=== PATIENT | female | born 1990 | race Hispanic/Latino ===

== ENCOUNTER 2018-07-17 08:40 | Emergency (ER) | payer OTHER, SELFPAY ==
[2018-07-17 08:53] VITALS: BP 129/52; PULSE 89; RESP 16; TEMP 38.2; O2SAT 99; BMI 42.0
[2018-07-17 09:00] VITALS: BP 127/69; PULSE 89; O2SAT 98
[2018-07-17] MEDS: ACETAMINOPHEN 325 MG TABLET 650 MG PO (09:29)
--- NOTE | 2018-07-17 09:29 | ED_ITS ---
HPI - Fever General Chief Complaint: Fever Stated Complaint: HEADACHE,8 WKS AND FEVER Time Seen by Provider: 07/17/18 08:55 Source: patient Mode of arrival: ambulatory Limitations: no limitations History of Present Illness HPI Narrative: Patient is a approximately 8 weeks EGA here for evaluation of a headache and fever. She states that the headache started yesterday and the fever started last evening. She states she took Tylenol last evening which did not improve her fever. She is not complaining of any abdominal pain, urinary symptoms, loss of bowel loss of bladder, neck pain Related Data Allergies Allergy/AdvReac Type Severity Reaction Status Date / Time No Known Drug Allergies Allergy Verified 07/17/18 08:53 Review of Systems Constitutional Reports fever(s) and Reports headache(s) Eyes Denies blurry vision, Denies diplopia and Denies photophobia Comments: Pain behind her eyes ENT Ears, Nose, Mouth, and Throat: Denies vertigo, Denies dizziness, Reports headache(s), Denies neck pain, Denies disequilibrium, Reports sinus pain, Reports sinus pressure, Denies sore throat and Denies throat swelling Cardiovascular Denies chest pain, Denies syncope and Denies dyspnea Respiratory Denies dyspnea Gastrointestinal Gastrointestinal: Denies abdominal pain and Denies change in bowel habits Musculoskeletal Denies arthralgias and Denies neck pain Integumentary/Breasts Denies rash Neurologic Denies vertigo, Denies dizziness, Denies syncope, Reports headache(s) and Denies disequilibrium Hematologic/Lymphatic Comments: Not on anticoagulation Allergic/Immunologic Denies throat swelling PFSH Medical History Healthy adult (Acute) Surgical History No pertinent past surgical history (Acute) Social History marital status: Exam Initial Vital Signs Initial Vital Signs: Vital Signs Temperature 100.8 F H 07/17/18 08:53 Pulse Rate 89 07/17/18 08:53 Respiratory Rate 16 07/17/18 08:53 Blood Pressure 129/52 L 07/17/18 08:53 Pulse Oximetry 99 07/17/18 08:53 Const General: cooperative, healthy appearing, comfortable, well developed, well groomed and No acute distress Orientation: alert, awake and oriented x3 HENMT Head: normal to inspection and normocephalic Ears: other (TMs bulging bilaterally without erythema) Eyes General: appearance normal, both eyes and all related structures Resp Effort & Inspection: normal respiratory effort Auscultation: clear to auscultation bilaterally Cardio Rate: regular rate Rhythm: regular rhythm GI Inspection: non-distended Skin Lesions: no lesions Rashes: no rashes Neuro General: awake and oriented x3 Cranial Nerves: CN's II-XI intact bilaterally Extrem General: normal to inspection and capillary refill normal Psych Appearance: grossly normal and well kempt Course Orders Ordered: ED Orders 07/17/18 09:10 Influenza A and B by PCR Rapid Stat Urine Culture Stat Urine Microscopic Stat Discontinued Medications Acetaminophen (Tylenol) 650 mg PO NOW ONE Stop: 07/17/18 08:56 Last Admin: 07/17/18 09:29 Dose: 650 mg Vital Signs - 8 hr 07/17/18 08:53 07/17/18 09:00 Temperature 100.8 F H Pulse Rate 89 89 Respiratory Rate 16 Blood Pressure 129/52 L Blood Pressure [Left Arm] 127/69 Pulse Oximetry 99 98 MDM - Fever Lab Data Attestation: I reviewed the patient's lab results. Lab Results 07/17/18 07/17/18 Range/Units 09:10 09:10 Urine RBC 5-10/hpf H (0-5/HPF) Urine WBC 1-5/hpf (0-5/HPF) Ur Squamous Epith Cells 1-5 /hpf Urine Bacteria Moderate (10-30) H (None) Ur Culture Indicated? Specimen cultured Micro UA Comment Not Reportable Influenza A & B (PCR) Negative (Negative) Urine Dip Bedside Urine Glucose Negative Bedside Urine Bilirubin + 1 Bedside Urine Ketone - Negative Urine Specific [place] 1.020 Bedside Urine Occult Blood ++ Bedside Urine pH 7.0 Bedside Urine Protein +/- 15 Bedside Urine Urobilinogen - Negative Bedside Urine Nitrite - Negative Bedside Urine Leukocytes +/- 15 Esterase MDM Narrative Medical decision making narrative: The patient's flu is negative. Was given Tylenol here in the emergency department. Her physical exam is not consistent with meningitis. Patient does have leukocyte Estrace him bacteria in her urine but no white blood cells and no urinary symptoms. A culture was started. Will hold on antibiotics for now. Patient was informed that a culture was pending and we would call for any positive results in any need for antibiotics. She does report sinus congestion. She does have fluid behind bilateral ears but however no signs of otitis media. No indication for antibiotics. We did discuss decongestants such as Claritin/Kathleen/Zyrtec. Patient was given return precautions. She expressed understanding and agreement with plan. Discharge Plan Departure Patient Disposition: Home Clinical Impression: Fever, Sinus congestion Instructions: Medications and , DI for Nasal Congestion Activity Restrictions/Additional Instructions: You can take Tylenol for any headaches and fevers. Also recommend that you take either Claritin or Zyrtec or Kathleen for the sinus congestion. Call your primary care doctor and her OB for follow-up. Return to the emergency department for any new or worsening symptoms
[2018-07-17 09:36] LABS: Influenza A and B by PCR Rapid Negative (Negative); RBC Urine 5-10/HPF (0-5/HPF); WBC Urine 1-5/HPF (0-5/HPF)
[2018-07-17 09:37] LABS: Bacteria Urine Moderate (10-30); Culture Indicated Urine Specimen Cultured; Squamous Epithelial Cell Urine 1-5 /HPF
[2018-07-17 10:00] VITALS: BP 127/62; PULSE 93; O2SAT 96
[2018-07-17 10:41] VITALS: BP 125/67; PULSE 101; RESP 18; TEMP 39.1; O2SAT 100
== END 2018-07-17 10:41 | disposition home or self-care (01) ==
PROVIDERS: Emergency Provider Emergency Medicine
DX: R50.9 Fever, unspecified (principal); R09.81 Nasal congestion
CPT/HCPCS: 81003; 81015; 87086; 87400; 99282; 99283

== ENCOUNTER → 2018-07-29 14:55 | Outpatient (CLI) | payer OTHER, SELFPAY | PROVIDERS: Visit Provider Family Medicine | DX: Z34.81 Encounter for supervision of other normal pregnancy, first trimester (principal) | CPT/HCPCS: 36415; 99001 ==

== ENCOUNTER → 2018-08-25 11:57 | Outpatient (CLI) | payer OTHER, SELFPAY ==
--- NOTE | 2018-08-25 12:00 | DI.US.S_ITS ---
PROCEDURE: US OB LIMITED INDICATIONS: DATES OUTSIDE/PRIOR DATING DATA: Last menstrual period (LMP): 05/19/18. LMP-based estimated date of delivery (DORY): 02/23/19. First dating scan (date and location): 08/25/18. Estimated date of delivery (DORY) from first dating scan: 02/19/19. TECHNIQUE: Real-time scanning was performed of the fetus, with image documentation and biometric measurements. COMPARISON: None. FINDINGS: General: A single living intrauterine gestation is present. Presentation: Breech Placenta: Placental position is anterior, without previa. Amniotic fluid index: Early. heart rate: 152 beats per minute. Maternal cervical canal: 3 cm long. Normal lower limit is 2.5 cm. No maternal hydronephrosis. biometrics: Biparietal diameter: 2.8 cm, 15 weeks 0 days Head circumference: 10.5 cm, 15 weeks 0 days Abdominal circumference: 8.5 cm, 14 weeks 5 days Femur length: 1.3 cm, 13 weeks 5 days Estimated gestational age from initial scan: not applicable. Composite gestational age from present scan: 14 weeks 4 days IMPRESSION: 1. Single living intrauterine with composite gestational age of 14 weeks 4 days corresponding to an estimated delivery date of 02/19/19. Dictated by: Gary Gilliland M.D. on 08/25/2018 at 17:16 Approved by: Gary Gilliland M.D. on 08/25/2018 at 17:19
== END ==
PROVIDERS: PCP Family Medicine; Visit Provider Family Medicine
DX: Z34.82 Encounter for supervision of other normal pregnancy, second trimester (principal); Z3A.14 14 weeks gestation of pregnancy
CPT/HCPCS: 36415; 76815; 86850; 86900; 86901

== ENCOUNTER → 2018-09-14 09:30 | Outpatient (CLI) | payer OTHER, SELFPAY ==
[2018-09-19 16:44] LABS: AFP, Serum 24.5 ng/mL; Calc Gestational Age 16.9; Est Date Determined by US; Maternal Weight 249 lbs; Mother Ethnic Origin OTHER; Number of Fetuses NOT GIVEN; Prev Pregnancies Down Syndrome NOT GIVEN
== END ==
PROVIDERS: PCP Family Medicine; Visit Provider Family Medicine
DX: Z3A.17 17 weeks gestation of pregnancy (principal)
CPT/HCPCS: 36415; 82105

== ENCOUNTER → 2018-09-28 16:07 | Outpatient (CLI) | payer OTHER, SELFPAY ==
--- NOTE | 2018-09-28 16:08 | DI.US.S_ITS ---
PROCEDURE: US OB >= 14 WEEKS FETUS INDICATIONS: 20 WEEKS US OUTSIDE/PRIOR DATING DATA: Last menstrual period (LMP): 05/19/18. LMP-based estimated date of delivery (DORY): 02/23/19. First dating scan (date and location): 08/25/18. Estimated date of delivery (DORY) from first dating scan: 02/19/19. TECHNIQUE: Real-time scanning was performed of the fetus, with image documentation and biometric measurements. COMPARISON: [facility], OB LIMITED, 08/25/2018, 12:35. FINDINGS: General: A single live intrauterine gestation is present. Presentation: Breech. Placenta: Placental position is anterior, without previa. Lower placental edge 2 cm or less from internal cervical os qualifies as low lying placenta. Amniotic fluid index: 13.5 cm, normal range is 5-24 cm. heart rate: 150 beats per minute. Maternal cervical canal: 4 cm long. Normal lower limit is 2.5 cm. biometrics: Biparietal diameter: 4.6 cm equals 20 weeks 0 days Head circumference: 16.9 cm equals 19 weeks 4 days Abdominal circumference: 15.1 cm equals 20 weeks 2 days Femur length: 3 cm equals 19 weeks 2 days Estimated gestational age from initial scan: 19 weeks 2 days Composite gestational age from present scan: 19 weeks 6 days Estimated weight and percentile: 316 g, 70th percentile Measurement variability for biometric dating: +/- 7 days from 14 weeks to 15 weeks 6 days gestation, +/- 10 days from 16 weeks to 21 weeks 6 days gestation, +/- 2 weeks from 22 weeks to 27 weeks 6 days gestation, +/- 3 weeks for 28 weeks gestation or later. weight reference: 4500 g or EFW >90/95% is considered macrosomia or large for gestational age. EFW <10% is small for gestational age. EFW 5% or less is considered intra-uterine growth restriction. Anatomic survey: Neuro: Ventricles are non-dilated at less than 10 mm. Cisterna magna is normal at 3-11 mm. Cerebellum is normal in size and morphology. Nuchal skin fold: Normal at less than 6 mm between 14-21 weeks gestational age. Face: The face is not well-seen. Spine: The spine is not well-seen. Heart: 4-chambered heart is present, with normal ventricular outflow tracts. Diaphragm: Diaphragm is intact. Stomach: Left-sided stomach is present. Kidneys: No hydronephrosis. Normal is less than 5 mm in 2nd trimester, less than 7 mm in 3rd trimester. Cord: 3-vessel cord has orthotopic insertion. Bladder: Normal in size. Extremities: All 4 extremities identified. This study is limited by maternal body habitus. IMPRESSION: No anatomic abnormality is identified, although the face and spine are not well-seen. Normal interval growth when compared to the prior ultrasound examination. Dictated by: Speedy Caal M.D. on 09/28/2018 at 16:52 Approved by: Speedy Caal M.D. on 09/28/2018 at 16:55
== END ==
PROVIDERS: PCP Family Medicine; Visit Provider Family Medicine
DX: Z34.92 Encounter for supervision of normal pregnancy, unspecified, second trimester (principal); Z3A.19 19 weeks gestation of pregnancy
CPT/HCPCS: 76811

== ENCOUNTER → 2018-10-31 15:54 | Outpatient (CLI) | payer OTHER, SELFPAY | PROVIDERS: PCP Family Medicine; Visit Provider Family Medicine | DX: O44.42 Low lying placenta NOS or without hemorrhage, second trimester (principal); Z53.9 Procedure and treatment not carried out, unspecified reason ==

== ENCOUNTER → 2018-11-02 15:35 | Outpatient (CLI) | payer OTHER, SELFPAY ==
--- NOTE | 2018-11-02 | DI.US.S_ITS ---
PROCEDURE: US OB LIMITED INDICATIONS: LOW LYING PLACENTA OUTSIDE/PRIOR DATING DATA: Last menstrual period (LMP): 05/20/18. LMP-based estimated date of delivery (DORY): 02/23/19. First dating scan (date and location): 08/25/18, [facility]. Estimated date of delivery (DORY) from first dating scan: 02/19/19. TECHNIQUE: Real-time scanning was performed of the fetus, with image documentation and biometric measurements. Endovaginal scanning: Not performed COMPARISON: [facility], , US OB LIMITED, 08/25/2018, 12:35. FINDINGS: General: A single living intrauterine gestation is present. Presentation: Breech. Placenta: Placental position is anterior, without previa. The inferior placental margin is 12.3 cm from the internal cervical os. Amniotic fluid index: 15.2 cm, normal range is 5-24 cm. heart rate: 149 beats per minute. Maternal cervical canal: 4.1 cm long. Normal lower limit is 2.5 cm Other: Not applicable. IMPRESSION: 1. Single intrauterine gestation in breech position. 2. No findings to suggest low-lying placenta or placenta previa. Dictated by: Lyly Velázquez M.D. on 11/02/2018 at 16:49 Approved by: Lyly Velázquez M.D. on 11/02/2018 at 16:55
== END ==
PROVIDERS: PCP Family Medicine; Visit Provider Family Medicine
DX: O44.42 Low lying placenta NOS or without hemorrhage, second trimester (principal); Z3A.34 34 weeks gestation of pregnancy
CPT/HCPCS: 76815

== ENCOUNTER → 2018-11-26 08:43 | Outpatient (CLI) | payer OTHER, SELFPAY ==
[2018-11-26 11:56] LABS: Hematocrit 32.9 % (36-46)
[2018-11-26 12:17] LABS: GTT (PREG) 1 Hour PP 50gm Dose 126 mg/dL (76-139)
== END ==
PROVIDERS: PCP Family Medicine; Visit Provider Family Medicine
DX: Z34.82 Encounter for supervision of other normal pregnancy, second trimester (principal); Z3A.26 26 weeks gestation of pregnancy
CPT/HCPCS: 36415; 82950; 85014; 85018

== ENCOUNTER → 2019-01-26 11:08 | Outpatient (CLI) | payer OTHER, MEDICAID, SELFPAY ==
[2019-01-27 12:31] LABS: Strep Grp B PCR NEG for Grp B Strep
== END ==
PROVIDERS: PCP Family Medicine; Visit Provider Family Medicine
DX: Z34.83 Encounter for supervision of other normal pregnancy, third trimester (principal); Z3A.36 36 weeks gestation of pregnancy
CPT/HCPCS: 87653

== ENCOUNTER 2019-02-15 20:04 | Inpatient (IN) | payer OTHER, MEDICAID, SELFPAY ==
--- NOTE | 2019-02-15 21:46 | PM.PREOP ---
Pre-operative Note Interval Note History & Physical reviewed/Exam performed by Physician: Yes Changes to H&P: No
--- NOTE | 2019-02-15 22:02 | PM.OBHP.1 ---
OB HPI Date/Time Date of admission: 02/15/19 Date Patient Seen: 02/15/19 Time Patient Seen: 21:55 History of Present Condition Chief complaint: observation of labor : 2 Para: 1 Estimated Date of Delivery: 02/23/19 Estimated Gestational Age (weeks): 38w6d Narrative: Magda Lebron is a 29 year old at 38+6 weeks gestation with prior history of . Patient reports she developed back pain at approximately 2 PM today while in [place] picking her up from the airport. Throughout the afternoon pain worsened and she developed contractions which prompted her to come to the hospital. She is scheduled for a repeat on 02/17/19. complicated by morbid obesity and depression (started sertraline in third trimester). Indications Operative indications ( section): previous uterine surgery History of Present care: good care, initiated at week # (15), number of visits and pounds weight gain (48) Dating criteria: LMP confirmed by 1st trimester US Obstetrical complications: none Medical complications: none Preadmission Labs Blood type: A (+) positive -: Antibody screen: negative, GBS status: negative, HBsAG: negative, HIV: negative and RPR/VDLR: negative -: Chlamydia screen: not detected and Gonorrhea screen: not detected -: Rubella: immune HCT: 35.9 HCAB: negative PAP: Normal Quad screen: Normal Urine: Negative 1 hr GTT: 126 Prior (ies) History: 05/26/2016 at 39 weeks for failure to progress, epidural failed and had general anesthesia after delivery of . 10 lbs 5 oz male. Evaluation Evaluation Baseline heart rate: 120 Variability: Moderate (11-25) monitor accelerations: Present monitor decelerations: Absent Contraction Frequency (minutes): 5 Uterine Contraction Intensity: Mild Category of Tracing: I Cervical dilation (cm): 0 Cervical effacement (%): 50 station: -2 [facility] Medical History (Updated 02/15/19 @ 22:20 by Mamta Del Valle DO) H/O wisdom tooth extraction (Resolved) Surgical History (Updated 02/15/19 @ 22:20 by Mamta Del Valle DO) H/O rhinoplasty (Resolved) History of tonsillectomy (Resolved) H/O: (Resolved) Family History Father Hypertension Social History marital status: Smoking Status: Former smoker Family History Father Hypertension Social History marital status: Smoking Status: Former smoker Meds Home Medications Medication Instructions Recorded Confirmed Type 1 tab PO DAILY 08/24/18 12/09/18 History vitamin,calcium,elqkufgi-yppj-rldlo acid tablet breast pump #1 each 09/28/18 12/09/18 Rx sertraline 50 mg tablet 50 mg PO DAILY #30 tab 01/26/19 Rx Allergies Allergy/AdvReac Type Severity Reaction Status Date / Time No Known Drug Allergies Allergy Verified 12/09/18 12:19 bees Allergy Severe Severe Uncoded 08/24/18 13:20 Review of Systems Constitutional Constitutional: Denies fatigue, Denies fever(s) and Denies headache(s) ENT Ears, Nose, Mouth, and Throat: No headache(s) Cardiovascular Cardiovascular: Denies chest pain, Denies leg swelling and Denies shortness of breath Respiratory Respiratory: Denies cough and Denies dyspnea Gastrointestinal Gastrointestinal: Denies change in bowel habits, Denies nausea and Denies vomiting Neurologic Neurologic: Denies headache(s) Endocrine Endocrine: Denies fatigue Exam Vital Signs (past 8 hours): BP 144/73 HR 68 Const General: cooperative and healthy appearing Nutritional Appearance: obese morbidly obese [facility] Head: normal to inspection Ears: hearing grossly normal bilaterally Nose: external nose normal Mouth: oral mucosae normal Eyes General: appearance normal, both eyes and all related structures Neck Neck: normal visual inspection Resp Auscultation: clear to auscultation bilaterally Cardio Rate: regular rate Rhythm: regular rhythm Estimated Weight (lbs): 10 Back/Spine/Pelvis Back: normal to inspection Neuro General: alert, awake and oriented x3 Extrem General: normal to inspection and no pedal edema Assessment and Plan Assessment and Plan Assessment and Plan narrative: 29 year old at 38+6 weeks gestation with history of prior , now in early labor. Will proceed with repeat . Risks and benefits reviewed with patient including risk of infection, bleeding, injury to surrounding organs (specifically bowel or bladder). Consent signed and in the chart. Ancef 2 g prior to surgery.
--- NOTE | 2019-02-15 22:18 | P.HPOB_ITS ---
OB HPI Date/Time Date of admission: 02/15/19 Date Patient Seen: 02/15/19 Time Patient Seen: 21:55 History of Present Condition Chief complaint: observation of labor : 2 Para: 1 Estimated Date of Delivery: 02/23/19 Estimated Gestational Age (weeks): 38w6d Narrative: Magda Lebron is a 29 year old at 38+6 weeks gestation with prior history of . Patient reports she developed back pain at approximately 2 PM today while in [place] picking her up from the airport. Throughout the afternoon pain worsened and she developed contractions which prompted her to come to the hospital. She is scheduled for a repeat c- section on 02/17/19. complicated by morbid obesity and depression (started sertraline in third trimester). Indications Operative indications ( section): previous uterine surgery History of Present care: good care, initiated at week # (15), number of visits and pounds weight gain (48) Dating criteria: LMP confirmed by 1st trimester US Obstetrical complications: none Medical complications: none Preadmission Labs Blood type: A (+) positive -: Antibody screen: negative, GBS status: negative, HBsAG: negative, HIV: negative and RPR/VDLR: negative -: Chlamydia screen: not detected and Gonorrhea screen: not detected -: Rubella: immune HCT: 35.9 HCAB: negative PAP: Normal Quad screen: Normal Urine: Negative 1 hr GTT: 126 Prior (ies) History: 05/26/2016 at 39 weeks for failure to progress, epidural failed and had general anesthesia after delivery of . 10 lbs 5 oz male. Evaluation Evaluation Baseline heart rate: 120 Variability: Moderate (11-25) monitor accelerations: Present monitor decelerations: Absent Contraction Frequency (minutes): 5 Uterine Contraction Intensity: Mild Category of Tracing: I Cervical dilation (cm): 0 Cervical effacement (%): 50 station: -2 [facility] Medical History (Updated 02/15/19 @ 22:20 by Mamta Del Valle DO) H/O wisdom tooth extraction (Resolved) Surgical History (Updated 02/15/19 @ 22:20 by Mamta Del Valle DO) H/O rhinoplasty (Resolved) History of tonsillectomy (Resolved) H/O: (Resolved) Family History Father Hypertension Social History marital status: Smoking Status: Former smoker Family History Father Hypertension Social History marital status: Smoking Status: Former smoker Meds Home Medications Medication Instructions Recorded Confirmed Type 1 tab PO DAILY 08/24/18 12/09/18 History vitamin,calcium,pywopjhk-uwci-hdkak acid tablet breast pump #1 each 09/28/18 12/09/18 Rx sertraline 50 mg tablet 50 mg PO DAILY #30 tab 01/26/19 Rx Allergies Allergy/AdvReac Type Severity Reaction Status Date / Time No Known Drug Allergies Allergy Verified 12/09/18 12:19 bees Allergy Severe Severe Uncoded 08/24/18 13:20 Review of Systems Constitutional Constitutional: Denies fatigue, Denies fever(s) and Denies headache(s) ENT Ears, Nose, Mouth, and Throat: No headache(s) Cardiovascular Cardiovascular: Denies chest pain, Denies leg swelling and Denies shortness of breath Respiratory Respiratory: Denies cough and Denies dyspnea Gastrointestinal Gastrointestinal: Denies change in bowel habits, Denies nausea and Denies vomiting Neurologic Neurologic: Denies headache(s) Endocrine Endocrine: Denies fatigue Exam Vital Signs (past 8 hours): BP 144/73 HR 68 Const General: cooperative and healthy appearing Nutritional Appearance: obese morbidly obese [facility] Head: normal to inspection Ears: hearing grossly normal bilaterally Nose: external nose normal Mouth: oral mucosae normal Eyes General: appearance normal, both eyes and all related structures Neck Neck: normal visual inspection Resp Auscultation: clear to auscultation bilaterally Cardio Rate: regular rate Rhythm: regular rhythm Estimated Weight (lbs): 10 Back/Spine/Pelvis Back: normal to inspection Neuro General: alert, awake and oriented x3 Extrem General: normal to inspection and no pedal edema Assessment and Plan Assessment and Plan Assessment and Plan narrative: 29 year old at 38+6 weeks gestation with history of prior , now in early labor. Will proceed with repeat . Risks and benefits reviewed with patient including risk of infection, bleeding, injury to surrounding organs (specifically bowel or bladder). Consent signed and in the chart. Ancef 2 g prior to surgery.
--- NOTE | 2019-02-15 22:27 | PM.PREOP ---
Pre-operative Note Interval Note History & Physical reviewed/Exam performed by Physician: Yes Changes to H&P: No
[2019-02-15 22:29] LABS: Add Manual Diff / Slide Review NO; Basophils Absolute Auto 0 /uL (0-100); Basophils Percent Auto 0.2 % (0-2); Eosinophils Absolute Auto 100 /uL (0-450); Eosinophils Percent Auto 0.7 % (2-4); Hematocrit 36.4 % (36-46); Hemoglobin 12.5 g/dL (12.0-16.0); Lymphocytes Absolute Auto 2600 /uL (1100-4500); Lymphocytes Percent Auto 29.9 % (25-40); Mean Corpuscular HGB Conc 34.2 % (30-36); Mean Corpuscular Hemoglobin 29.9 PG (26-34); Mean Corpuscular Volume 87.2 fL (80-100); Monocytes Absolute Auto 1000 /uL (0-900); Monocytes Percent Auto 10.8 % (3-14); Neutrophils Absolute Auto 5200 /uL (1500-7000); Neutrophils Percent Auto 58.4 % (50-75); Platelet Count 243 X10^3/uL (150-400); Red Blood Cell Count 4.17 X10^6/uL (4.0-5.2); Red Cell Distribution Width 15.6 % (11.6-14.8); White Blood Cell Count 8.9 X10^3/uL (4.5-11.0)
[2019-02-15] MEDS: FAMOTIDINE 20 MG/50 ML PIGGYBACK 200 MG IV (22:46)
[2019-02-15] MEDS: CEFAZOLIN 2 GM/100 ML FROZ.PIGGY IV (22:50)
--- NOTE | 2019-02-15 23:28 | SUR.OPER ---
Supine on padded OR bed, head on pillow, arms secured on padded arm boards at <90 degrees abduction, legs uncrossed, safety belt at thigh, tape over blanket over lower legs.
--- NOTE | 2019-02-15 23:33 | SUR.OPER ---
Healthy baby boy born at 2318, score of 9.5.
[2019-02-15] MEDS: LACTATED RINGERS 1,000 ML 42 ML IV ×2 (23:55→23:56)
[2019-02-16 00:08] VITALS: BP 136/79; PULSE 75; RESP 18; TEMP 36.1; O2SAT 98
[2019-02-16 00:13] VITALS: BP 128/71; PULSE 72; RESP 20; O2SAT 97
[2019-02-16 00:18] VITALS: BP 135/75; PULSE 78; RESP 20; O2SAT 95
--- NOTE | 2019-02-16 00:20 | PM.OP.1 ---
Operative Date/Time/Diagnoses Date of procedure: 02/15/19 Time of procedure: 23:00 Pre-op diagnosis: 38 weeks of History of Post-op diagnosis: same Procedure & Clinicians Procedure: Repeat low transverse section Same procedure as scheduled: Yes Indications: 38 weeks of History of Labor Surgeon: Mamta Del Valle Content Architect: Saida Servin Anesthesia Type: Spinal Operative Notes Findings: Vigorous male Normal uterus, fallopian tubes and ovaries Closure Type: primary Applied: catheter Estimated Blood Loss (mL): 500 Blood products transfused: none Procedure in detail: The patient was taken to the operating room where she was placed in the seated position. Spinal anesthesia was administered. She was then placed in the dorsal supine position with a leftward tilt. She was prepped and draped in the usual sterile fashion. A timeout was performed. After spinal analgesia was found to be adequate, a Pfannenstiel skin incision was made over the prior scar and carried through to the underlying layer fascia. The fascia was nicked in the midline and the incision extended bilaterally with Luis scissors. The superior aspect of the fascial incision was grasped with a [place] clamps, elevated, and the underlying rectus muscles dissected off sharply and bluntly. Attention was then turned to the inferior aspect of this incision which in a similar fashion was grasped with a [place] clamps, elevated, and the underlying rectus muscles dissected off sharply and bluntly. The rectus muscles were in the midline. The peritoneum was identified, grasped between 2 hemostats, and entered sharply with the Metzenbaum scissors. This incision was extended superiorly and inferiorly with good visualization of the bladder. The bladder blade was inserted. The vesicouterine peritoneum was identified, grasped with the pickup, and entered sharply with the Metzenbaum scissors. This incision was extended bilaterally, and the bladder flap was created digitally. The bladder blade was reinserted. The lower uterine segment was incised in a transverse fashion with the scalpel. Upon entering the amniotic sac there was a small amount light meconium stained amniotic fluid. Infant was found to have a double nuchal cord which was reduced. The 's head was delivered with vacuum assistance. The remainder of the body delivered with some difficulty. The cord was double clamped and cut. The infant was handed off to waiting RN and RT. The placenta was delivered manually. The uterus was cleared of all clots and debris. The uterine incision was repaired with #1 chromic in a running interlocking fashion and a second layer the same suture was used for an imbricating layer. During closure of the uterus, pitocin was given but due to brisk uterine bleeding and low tone, patient recieved IM methergine. Uterine tone improved and hemostasis was achieved. The tubes and ovaries were examined and were found to be normal. The gutters were cleared of all clots and debris. The bladder flap was reapproximated using 2-0 Vicryl in a running fashion. The parietal peritoneum was closed using 2-0 Vicryl in a running fashion. The fascia was reapproximated using 0 Vicryl in a running fashion. Subcutaneous layer was copiously irrigated with warm normal saline. 3 simple interrupted sutures of 3-0 Vicryl were placed to reapproximate the subcutaneous layer. The skin was closed with 4-0 undyed Vicryl in a subcuticular fashion. Steri-Strips were placed. An Aquacel dressing was placed. The uterus was expressed of a small amount of old blood. Sponge, lap, and instrument counts were correct. The patient tolerated the procedure well, and was taken to PACU in stable condition. Complications: other (Patient received Methergine after Pitocin due to poor uterine tone and bleeding while closing the uterus) Condition: stable Disposition: PACU Plan for aftercare: Routine post care
[2019-02-16 00:23] VITALS: BP 126/72; PULSE 70; RESP 22; O2SAT 96
--- NOTE | 2019-02-16 00:38 | SUR.PHASEI ---
PT TO CENTER, HAND OFF OF CARE TO AGUS JEAN
[2019-02-16] MEDS: NALBUPHINE 20 MG/ML AMPUL 5 MG IV (02:04)
[2019-02-16] MEDS: KETOROLAC 30 MG/ML VIAL IV ×2 (05:57→12:15)
[2019-02-16] MEDS: diphenhydrAMINE 25 MG TABLET PO (07:45)
[2019-02-16] MEDS: SERTRALINE 50 MG TABLET PO (11:19)
[2019-02-16] MEDS: DOCUSATE 250 MG CAPSULE PO (11:20)
[2019-02-16] MEDS: PRENATAL VIT,CALC/IRON/FOLIC 1 TABLET 1 TAB PO (11:20)
--- NOTE | 2019-02-16 12:51 | PM.OBPN.1 ---
Subjective - OB Patient comments: no complaints, pain well controlled, tolerating diet and flatus present baby status: doing well and nursing well feeding status: exclusively breast feeding Date Patient Seen: 02/16/19 Time Patient Seen: 12:35 Interval history: Doing well this morning. She has already been up, had her green removed and voided once. Bleeding was initially heavy but has decreased. Pain well-controlled. Exam Vital Signs (past 8 hours): [id number] BP 118/63 HR 76 RR 16 Narrative Exam Narrative: General: Awake and alert, no acute distress. HEENT: NCAT, EOMI, moist oral mucosa CV: Regular rate and rhythm, no murmurs, rubs or gallops Lungs: CTAB, no wheezes, rales, or rhonchi Abdomen: Aquacel dressing intact without drainage. Soft, nontender; bowel tones active; uterus firm 1 cm below umbilicus Extremities: Warm, no edema bilaterally, 2+ pedal pulses bilaterally Objective Labs Result Diagrams: 02/15/19 22:00 Labs: Laboratory Results - last 24 hr 02/15/19 02/15/19 22:00 22:00 WBC 8.9 RBC 4.17 Hgb 12.5 Hct 36.4 MCV 87.2 MCH 29.9 MCHC 34.2 RDW 15.6 H Plt Count 243 Neut % (Auto) 58.4 Lymph % (Auto) 29.9 [place] % (Auto) 10.8 Eos % (Auto) 0.7 L Baso % (Auto) 0.2 Neut # (Auto) 5200 Lymph # (Auto) 2600 [place] # (Auto) 1000 H Eos # (Auto) 100 Baso # (Auto) 0 Blood Type A Positive Antibody Screen Negative Assessment & Plan (1) 38 weeks gestation of : Status: Acute Current Visit: Yes (2) S/P : Status: Acute Current Visit: Yes Plan day: 1 plan OB: routine postop care Time Spent With Patient Total time spent is greater than 50% in coordination of care (as documented) at patient's floor/unit and/or counseling patient: less than 15 minutes
[2019-02-16] MEDS: IBUPROFEN 600 MG TABLET PO (18:31)
[2019-02-17] MEDS: IBUPROFEN 600 MG TABLET PO ×2 (00:49→07:06)
[2019-02-17] MEDS: OXYCODONE IR 5 MG TABLET PO ×2 (04:25→09:26)
--- NOTE | 2019-02-17 08:17 | PM.OBDS.1 ---
Discharge Providers Date of admission: 02/15/19 20:04 Discharge Date: 02/17/19 Primary care physician: Mamta Del Valle DO Consults: 02/16/19 01:59 Consult to Network Systems Analyst Routine Comment: Discharge provider: Mamta Del Valle DO Summary Date Patient Seen: 02/17/19 Time Patient Seen: 07:45 Procedures: Low transverse section Hospital Course: Patient is a 29-year-old G2-now-P2 after repeat low transverse section at 38 weeks and 6 days gestation. The patient was scheduled for repeat however presented to the center in early labor. and course were uncomplicated. She delivered a vigorous male . Bleeding has decreased, pain well controlled with ibuprofen and oxycodone. She is ambulating and voiding without difficulty. Passing flatus but no bowel movement yet. She has no concerns and is eager to return home. Peripartum Data Infant Delivery Method: Section complications: none Nice 1: Gender: Male Disposition of : home Discharge Diagnosis (1) 38 weeks gestation of : Status: Acute (2) S/P : Status: Acute Status at Discharge Cognitive/behavioral status at discharge: at baseline, oriented Functional status at discharge: independent ambulation Overall status at discharge: patient is back to baseline Time Spent with Patient Total time spent providing and/or coordinating discharge services: Less than 30 minutes Objective Labs Result Diagrams: 02/15/19 22:00 Exam Vital Signs (past 8 hours): Temperature 97.8? blood pressure 136/71 heart rate 67 respirations 18 Narrative Exam Narrative: General: Awake and alert, no acute distress. HEENT: NCAT, EOMI, moist oral mucosa CV: Regular rate and rhythm, no murmurs, rubs or gallops Lungs: CTAB, no wheezes, rales, or rhonchi Abdomen: Aquacel dressing intact without drainage. Soft, nontender; bowel tones active; uterus firm 1 cm below umbilicus Extremities: Warm, no edema bilaterally, 2+ pedal pulses bilaterally Discharge Plan Discharge Plan Patient Disposition: Home Discharge comment: Counseled patient to call for fevers, bleeding through more than a pad an hour or severe pain. She will follow up in clinic next week for a wound check. Discharge Med Rec/Prescriptions Prescriptions: New ibuprofen 600 mg Tablet 600 mg PO Q6HR PRN (Reason: As Needed For Fever/Mild Pain) Qty: 30 RF: 0 docusate sodium 250 mg Capsule 250 mg PO DAILY Qty: 30 RF: 0 oxycodone 5 mg Tablet 5 mg PO Q4HR PRN (Reason: Pain, Moderate (4-6)) Qty: 20 RF: 0 Continued sertraline 50 mg tablet 50 mg PO DAILY Qty: 30 RF: 1 prenat.vits,raymond,uxu-bwsb-ehsmr tablet 1 tab PO DAILY RF: 0 breast pump device .ROUTE .MEDSUPPLY Qty: 1 RF: 0 Follow up/Referrals: Mamta Del Valle DO [Primary Care Provider] - 02/21/19 11:30 am Provider Discharge Instructions Diet: Diet as Tolerated Skin/Wound/Dressing Care Report to your healthcare provider any signs of infection, such as:: chills, fever, night sweats and increased pain Visit Report/Discharge Packet Visit Report Forms: Stroke Signs & Symptoms Discharge Data Primary Care Provider: Mamta Del Valle Attending Provider: Mamta Del Valle Admit Date/Time: 02/15/19 20:04
[2019-02-17] MEDS: SERTRALINE 50 MG TABLET PO (09:26)
[2019-02-17] MEDS: DOCUSATE 250 MG CAPSULE PO (09:26)
[2019-02-17] MEDS: PRENATAL VIT,CALC/IRON/FOLIC 1 TABLET 1 TAB PO (09:26)
[2019-02-17 10:10] VITALS: BP 129/76
[2019-02-17 10:13] VITALS: BP 129/76; PULSE 69; RESP 18; TEMP 36.9
[2019-02-17 10:32] LABS: Hematocrit 32.3 % (36-46); Hemoglobin 11.1 g/dL (12.0-16.0)
== END 2019-02-17 12:58 | disposition home or self-care (01) | DRG 788 ==
PROVIDERS: Specialist; Admitting Provider Family Medicine; PCP Family Medicine; Visit Provider Family Medicine
PROC: (CPT 59514; principal; 2019-02-15 22:40)
DX: O34.219 Maternal care for unspecified type scar from previous cesarean delivery (principal); Z3A.38 38 weeks gestation of pregnancy; Z37.0 Single live birth; O99.214 Obesity complicating childbirth; E66.01 Morbid (severe) obesity due to excess calories; O99.344 Other mental disorders complicating childbirth; F32.9 Major depressive disorder, single episode, unspecified
CPT/HCPCS: 36415; 59050; 59510; 59514; 85014; 85018; 85025; 86850; 86900; 86901; G0379; J0690; J1885; J2210; J2274; J2300; J2405; J2590; J3010